=== PATIENT | female | born 1990 | race Two or more races ===

== ENCOUNTER 2017-07-13 21:35 | Emergency (ER) | payer SELFPAY ==
[~2017-07-13] VITALS: Ht 154.9 cm; Wt 77.1 kg
[2017-07-13 21:58] VITALS: BP 151/91
== END 2017-07-13 23:38 | disposition left against medical advice (07) ==
LOC: ER 21:35
DX: K08.89 Other specified disorders of teeth and supporting structures (principal); R22.0 Localized swelling, mass and lump, head; Z53.21 Procedure and treatment not carried out due to patient leaving prior to being seen by health care provider